=== PATIENT | female | born 1995 | race Caucasian/White ===

== ENCOUNTER 2025-02-25 15:09 | Emergency (ER) | payer MEDICAID, OTHER ==
[~2025-02-25] VITALS: Ht 162.6 cm; Wt 79.5 kg
[~2025-02-25 15:09] MED LIST: PNV1CAPS17 PO; PREN-147 PO
[2025-02-25 16:07] LABS: PLATELET COUNT (AUTO) 352 K/uL (150-450); RED BLOOD CELL COUNT(AUTO) 5.45 MIL/uL (4.00-5.20); RED CELL DISTRIBUTION WIDTH 14.6 % (11.5-14.5); WHITE BLOOD COUNT (AUTO) 15.1 K/uL (4.5-11.0)
[2025-02-25] MEDS: ONDANSETRON HCL 4 MG/2 ML VIAL IVP ONE ×2 (16:10→17:52)
[2025-02-25] MEDS: SODIUM CHLORIDE 0.9% 1,000 ML IV ONE (16:11)
[2025-02-25 16:15] LABS: CALCIUM, TOTAL 9.3 mg/dL (8.8-10.5); CREATININE 1.2 mg/dL (0.60-1.30); GLOMERULAR FILTR. RATE CALC 53.0 mL/min (>60); GLUCOSE,RANDOM 134.0 mg/dL (70-110); SODIUM SERUM 144.0 mmol/L (136-145); UREA NITROGEN, BLOOD 18.0 mg/dL (7-18)
[2025-02-25 16:27] LABS: ASPARTATE AMINOTRANSFERASE 16 U/L (15-37); HCG,QUANTITATIVE < 1 mIU/mL (0-6); TOTAL PROTEIN, SERUM 8.9 g/dL (6.4-8.2)
[2025-02-25 17:40] LABS: APPEARANCE,URINE HAZY (CLEAR); GLUCOSE, URINE (UA) NEGATIVE (NEGATIVE); LEUKOCYTE ESTERASE ,URINE NEGATIVE (NEGATIVE); NITRATE,URINE NEGATIVE (NEGATIVE); OCCULT BLOOD,URINE NEGATIVE (NEGATIVE); SPECIFIC GRAVITIY, URINE 1.036 (1.003-1.030)
[2025-02-25] MEDS: PB/HYOSCY/ATR/SCOP/LIDO/MAALOX 55 ML BOTTLE PO ONE (17:52)
[2025-02-25 17:59] LABS: SULFOSALICYLIC ACID,URINE 2+ (Negative)
[2025-02-25 18:00] LABS: SQUAMOUS EPITHELIAL CELL,UR Moderate /LPF (None Seen)
[2025-02-25 18:46] VITALS: BP 135/88; PULSE 98; RESP 18; TEMP 98.2; O2SAT 99
[2025-02-25] MEDS ORDERED: ONDA-104 PO (18:46)
== END 2025-02-25 19:20 | disposition left against medical advice (07) ==
LOC: EMS 15:09
DX: T51.0X1A Toxic effect of ethanol, accidental (unintentional), initial encounter (principal); K21.9 Gastro-esophageal reflux disease without esophagitis; R11.2 Nausea with vomiting, unspecified; Z79.899 Other long term (current) drug therapy; Y99.8 Other external cause status
CPT/HCPCS: 99285; 96374; 76700; 96361; 80048; 80076; 81001; 83690; 84702; 85025; 36415; 96376; J2405; J7030; 81002; 96375

== ENCOUNTER 2025-06-26 23:00 | Emergency (ER) | payer OTHER ==
[~2025-06-26] VITALS: Ht 165.1 cm; Wt 73.6 kg
[~2025-06-26 23:00] MED LIST changes: +ONDA-104 PO
[2025-06-26 23:17] VITALS: TEMP 99.3
[2025-06-26 23:38] LABS: APPEARANCE,URINE CLEAR (CLEAR); GLUCOSE, URINE (UA) 300-500 mg/dL (NEGATIVE); LEUKOCYTE ESTERASE ,URINE SMALL (NEGATIVE); NITRATE,URINE NEGATIVE (NEGATIVE); OCCULT BLOOD,URINE NEGATIVE (NEGATIVE); SPECIFIC GRAVITIY, URINE 1.038 (1.003-1.030)
[2025-06-26 23:52] LABS: SQUAMOUS EPITHELIAL CELL,UR Few /LPF (None Seen); SULFOSALICYLIC ACID,URINE 2+ (Negative)
[2025-06-26 23:56] VITALS: BP 121/96; PULSE 110; RESP 17; O2SAT 97
[2025-06-27 00:01] LABS: CALCIUM, TOTAL 9.1 mg/dL (8.8-10.5); CREATININE 0.85 mg/dL (0.60-1.30); GLOMERULAR FILTR. RATE CALC > 60 mL/min (>60); GLUCOSE,RANDOM 174 mg/dL (70-110); SODIUM SERUM 140 mmol/L (136-145); UREA NITROGEN, BLOOD 10 mg/dL (7-18)
[2025-06-27 00:06] LABS: PLATELET COUNT (AUTO) 375 K/uL (150-450); RED BLOOD CELL COUNT(AUTO) 5.22 MIL/uL (4.00-5.20); RED CELL DISTRIBUTION WIDTH 14.4 % (11.5-14.5); WHITE BLOOD COUNT (AUTO) 20.1 K/uL (4.5-11.0)
[2025-06-27] MEDS: FAMOTIDINE 20 MG/2 ML VIAL IVP ONE (00:28)
[2025-06-27] MEDS: ACETAMINOPHEN 1000 MG/ISO-OSM 100 ML IV ONE (00:28)
[2025-06-27] MEDS: METOCLOPRAMIDE HCL 5 MG/ML 2 ML VIAL IVP ONE (00:28)
[2025-06-27] MEDS: DEXTROSE IV ONE (00:39)
[2025-06-27] MEDS: ONDANSETRON HCL 4 MG/2 ML VIAL IVP ONE (00:39)
[2025-06-27] MEDS: SODIUM CHL IV ONE (00:39)
[2025-06-27] MEDS: POTASSIUM CHLORIDE IV ONE (00:39)
[2025-06-27] MEDS: PROMETHAZINE HCL 25 MG RECTAL SUPPOSITORY PR ONE (01:29)
[2025-06-27] MEDS: MORPHINE SULFATE 4 MG/ML SYRINGE IVP ONE (02:15)
== END 2025-06-27 04:48 | disposition home or self-care (01) ==
LOC: EMS 23:01
DX: O21.1 Hyperemesis gravidarum with metabolic disturbance (principal); R10.20 Pelvic and perineal pain unspecified side; Z3A.14 14 weeks gestation of pregnancy
CPT/HCPCS: 99284; 80048; 81001; 83735; 84702; 85025; 36415; 96374; 96361; 96375; J1200; J3490; J2765; J2270; J7042; J3480; J0131; 81002; 96365